=== PATIENT | female | born 1945 | race Caucasian/White ===

== ENCOUNTER 2025-01-26 06:31 | Emergency (ER) | payer MEDICARE, OTHER, SELFPAY ==
[2025-01-26] VITALS (7 sets, daily range): BP systolic 90–128; BP diastolic 57–87; BMI 34.0
--- NOTE | 2025-01-26 07:01 | ED.GENMED ---
History of Present Illness
General
Chief Complaint: Cardiac Symptoms
Source: patient and spouse
Exam Limitations: none
Time Seen by Provider: 01/26/25 06:46
Nursing documentation reviewed up to this point in time: agreed with
History of Present Illness
History of Present Illness:
80-year-old female with a past medical history of hypertension, hyperlipidemia who presents to the emergency department with her for evaluation of palpitations and dizziness. Patient reports that symptoms started around 11 PM last night
while she was getting ready for bed and continued this morning. She reports she first noticed them when she stood up to go to the bathroom and she felt mildly dizzy and she said she had 'an anxious feeling in my chest.' She says she has some
palpitations. She says this morning she felt her heart racing and had some sweatiness and nausea. She says that she was able to check her home EKG using an emma and it showed that she was in atrial fibrillation. Came to the ER for evaluation. She
is feeling generally well here in the ER. She denies any chest pain or shortness of breath. She denies any other complaints. She has no known history of A-fib but she does see a overlock elastic attacher (Dr. Disla) for blood pressure management.
She is on a beta-jimenez (carvedilol) which she took this morning. She does not take any blood thinners for any reason.
Past History
Past History
ED Past Medical History: Other (Anxiety, Arlene's thyroiditis, hypothyroidism, hypertension, hyperlipidemia, paroxysmal atrial fib)
Social History
Tobacco: Non-smoker
Alcohol: Occasional
Family History
Family History: Hypertension
Review of Systems
Review of Systems
All Other Systems: ROS reviewed and negative except as documented in HPI and ROS
Constitutional: Denies fever
Respiratory: Denies trouble breathing
Cardiac: Reports diaphoresis and palpitations; Denies chest pain
ABD/GI: Reports nausea; Denies abdominal pain
: Denies flank pain
Musculoskeletal: Denies edema, neck pain or back pain
Neurological: Reports dizzy; Denies headache
Phy Exam
Physical Exam
Physical Exam:
General: Awake, alert, oriented x3; no acute distress
Head: Normocephalic, atraumatic
Eyes: Conjunctiva normal, EOMI
Throat: Airway intact, handling secretions
Neck: Trachea midline, no JVD
Lungs: Clear to auscultation bilaterally, no wheezing, rales, rhonchi
Heart: Regular rate and irregularly irregular rhythm, no murmurs, gallops, or rubs
Abd: Soft, non distended, nontender
Neuro: No gross deficits
Extremities: No edema in extremities, equal pulses in all extremities
Scores
[id number] Score for Afib Stroke Risk
Age in Years (65=0, 65-74=1, >/=75=2): > or = 75
Sex (Female=+1): Female
Congestive Heart Failure History (Yes=+1): No
Hypertension History (Yes=+1): Yes
Stroke/TIA/Thromboembolism History (Yes=+2): No
Vascular Disease History (Yes=+1): No
Diabetes Mellitus (Yes=+1): No
Score: 4
Anticoagulation Recommendations: Recommend anticoagulation (as validated in nonvalvular fib)
Heart Failure Risk
Heart Failure Risk Score: Not Applicable
Heart Score for Chest Pain Patients
STEMI patient?: Not applicable
Withdrawal Assessment of Alcohol
Withdrawal Assessment Completed?: Not applicable
Course
Orders/Labs/Results
Orders:
Orders
01/26/25 06:37
Electrocardiogram (*1) Urgent
Reason for Study: Atrial Fibrillation
EKG- Treatment ONCE
01/26/25 07:07
Complete Blood Count/With Diff Urgent
Comprehensive Metabolic Panel Urgent
TSH Reflex To Free T4 Urgent
Troponin I Urgent
Abnormal Lab Results
01/26/25
07:07
Absolute Monos (auto) 0.7 H 10^3/uL
(0.1-0.6)
Monocytes % 10.5 H %
(1.7-9.3)
BUN 23 H mg/dl
(7-17)
Glucose 121 H mg/dl
(70-99)
01/26/25 07:07
01/26/25 07:07
Vital Signs
Initial and Last Documented VS:
Initial Vital Signs
Temp Pulse Resp BP Pulse Ox
36.2 C 70 20 128/74 96
01/26/25 06:34 01/26/25 06:34 01/26/25 06:34 01/26/25 06:34 01/26/25 06:34
Last Documented Vital Signs
Temp Pulse Resp BP Pulse Ox
36.2 C 58 15 93/58 93
01/26/25 06:34 01/26/25 09:00 01/26/25 09:00 01/26/25 09:00 01/26/25 09:00
MDM/Problems Addressed
Differential Diagnosis Includes:
A-fib
MDM/Problems Addressed:
80-year-old female presents to the ER for evaluation of palpitations and dizziness�Home EKG showed new onset A-fib. Feels well here in the ER. Vital signs normal. Physical exam as above. Her EKG here shows atrial fibrillation with ventricular
rate 61. Plan to check basic labs, thyroid studies. With very reasonable ventricular rate of 61, normal blood pressure, minimally symptomatic here no indication for emergent cardioversion at this point in time especially in light of the fact that
this is new onset with no anticoagulation on board. Patient's [id number] score is 4�will plan to start anticoagulation with Eliquis. She will need close outpatient cardiology follow-up. Will monitor on telemetry.
Labs reviewed: CBC and CMP unremarkable. Thyroid studies normal. Troponin negative. Patient remains rate controlled, normotensive well-appearing on clinical reassessment. Stable for discharge can continue carvedilol, started on Eliquis.
Follow-up with overlock elastic attacher as an outpatient. Patient comfortable with this plan. I did speak with her overlock elastic attacher to ensure good outpatient follow-up. I also spoke with case checker who came by to ensure insurance coverage for Eliquis. Spoke
about return precautions all questions answered.
*Pulse Oximetry
Patient hypoxic: no
*EKG
Interpreted by ED Provider?: Yes
Comparison EKG: changes noted (Today's in atrial fibrillation, otherwise no significant changes)
Heart Rate: 61
Rate: normal
Rhythm: a-fib
Hickman: normal axis
Interval: normal interval
QRS Pattern: left vent hypertrophy
*Critical Care Note
Total Time (30-74mins, 75-104mins- exclusive of procedures): Not Applicable
Data Reviewed
Review of Other/Old Records Reveals: Labs and Records
Source: patient and records
Patient Management
Discussion with other providers: Tack Welder (Discussed with her outpatient cardiology office) and Other (Discussed with case management)
ED Attending Note
-
Portions of this chart may have been created with voice recognition software.� Occasional wrong word or��sound alike� substitutions may have occurred due to the inherent limitations of voice recognition software.
Discharge Plan
Departure
Patient Disposition: Home (Routine Discharge)
Date of Disposition: 01/26/25
Time of Disposition: 08:53
Patient with high blood pressure during this ER visit?: No
Discharge Problem:
Atrial fibrillation
Instructions: Atrial fibrillation - Discharge instructions
Prescriptions:
New
Eliquis 5 mg tablet
5 mg PO BID Qty: 60 0RF
No Action
multivitamin [Qlx-Hkyihq-Bedwa] 1 EACH tablet
1 ea PO HS
atenolol-chlorthalidone [Tenoretic 50] 1 EACH tablet
1 ea PO HS
aspirin [Ciara Low Dose Aspirin] 81 MG tablet,delayed release (DR/EC)
81 mg PO HS
levothyroxine 100 MCG tablet
100 mcg PO DAILY
alprazolam 0.25 MG tablet
0.25 mg PO DAILYPRN PRN (Reason: anxiety)
calcium carbonate [calcium] 500 MG tablet
500 mg PO BID
ascorbic acid (vitamin C) 250 MG tablet
250 mg PO HS
simvastatin 5 MG tablet
5 mg PO HS
lisinopril 10 MG tablet
10 mg PO BID
vitamin B complex 1 TAB tablet
1 tab PO DAILY
Lactobacillus acidophilus [Acidophilus] 1 CAP capsule
1 cap PO DAILY
loratadine 10 MG tablet
10 mg PO HS
cholecalciferol (vitamin D3) [Vitamin D3] 1,000 UNIT capsule
1,000 unit PO DAILY
sulfacetamide sodium 355 ML cleanser
1 dose topical QPM
glucosamine addison 2KCl-chondroit [Glucosamine Sulf-Chondroitin] 1 EACH capsule
1 cap PO HS
omega 8-znj-kgm-fish oil 1 EACH capsule
1 ea PO BID
azelaic acid [Finacea] 50 GM foam
50 gm topical BID
Sodium Fluoride
1 dose PO BID
Referrals:
Shannon Disla MD [Active] - Call in 1-3 days for appt
Activity Restrictions/Additional Instructions:
Thank you for visiting the Emergency Department at [facility].
1. Please schedule a follow up appointment as directed. Call first thing tomorrow morning to make an appointment.
2. If indicated, please take your medications as instructed and indicated on discharge paperwork.
3. If any of your symptoms do not improve, or persist, or become more severe within 6-12 hours, please return to the emergency department for further care.
4. Please return to the emergency department if you develop a headache, neck pain/stiffness, fever greater than 100.4F, chest pain, shortness of breath, persistent nausea, vomiting, slurred speech, difficulty walking, numbness/tingling, weakness,
signs of infection or any other symptoms that are worrisome to you.
Please call [phone] if you have any questions.
Interventions
Interventions:
*Risk Screen - Suicide Last Done: 01/26/25 06:34
*General Assessment Last Done: 01/26/25 07:11
*Neglect/Abuse Screening Last Done: 01/26/25 06:34
*ED- Fall Risk Assessment Last Done: 01/26/25 07:11
*ED COVID-19 Vaccine History Last Done: 01/26/25 07:11
ED- Pulmonary Assessment Last Done: 01/26/25 07:11
ED- Cardiac Assessment Last Done: 01/26/25 07:11
Discharge Date and Time
Print Language: BURMESE
[2025-01-26 07:17] LABS: % Basophils 0.9 % (0-2); % Eosinophils 5.2 % (0-6); % Immature Granulocytes 0.3 % (0-0.5); % Lymphocytes 33.7 % (20.5-51.1); % Monocytes 10.5 % (1.7-9.3); % Neutrophils 49.4 % (42.2-75.2); Absolute Basophils 0.1 10^3/uL (0-0.2); Absolute Eosinophils 0.3 10^3/uL (0-0.7); Absolute Lymphocytes 2.2 10^3/uL (1.2-3.4); Absolute Monocytes 0.7 10^3/uL (0.1-0.6); Absolute Neutrophils 3.2 10^3/uL (1.4-6.5); Hematocrit 41.7 % (37.0-47.0); Hemoglobin 14.5 g/dL (12.0-16.0); Mean Corp Hgb Conc. 34.8 g/dL (33.0-37.0); Mean Corpuscular Hgb 30.9 pg (27.0-31.0); Mean Corpuscular Volume 88.9 fL (81.0-99.0); Mean Platelet Volume 9.3 fL (7.4-10.4); Nucleated Red Blood Cells % 0 %; Platelet Count 180 10^3/uL (130-400); Red Blood Cell Count 4.69 10^6/uL (4.20-5.40); Red Cell Dist. Width 12.9 % (11.5-14.5); White Blood Cell Count 6.4 10^3/uL (4.8-10.8)
[2025-01-26 07:34] LABS: ALT (SGPT) 24 U/L (0-35); AST (SGOT) 25 U/L (14-36); Albumin 4.3 g/dl (3.5-5.0); Alkaline Phosphatase 75 U/L (38-126); Blood Urea Nitrogen 23 mg/dl (7-17); Carbon Dioxide 27 mmol/L (22-30); Chloride 103 mmol/L (98-107); Estimated Creatinine Clearance 54 ml/min; Glucose 121 mg/dl (70-99); Potassium 4.8 mmol/L (3.5-5.1); Sodium 136 mmol/L (135-145); Total Bilirubin 0.5 mg/dl (0.2-1.3); Total Protein 6.9 g/dl (6.3-8.2); eGFR > 60.00
[2025-01-26 07:45] LABS: Troponin I 0.013 ng/ml
[2025-01-26 08:05] LABS: TSH Reflex To Free T4 3.11 uIU/ml (0.47-4.68)
--- NOTE | 2025-01-26 09:06 | CM ---
ED CM consult for Eliquis
Call with [facility] [phone]
Eliquis 5 mg BID
30 day retail- $117.12
90 day mail order- $326.31
Deductible- $93.94
Out of pocket max- $1132.93/$2000
Bedside update to pt
Able to take on costs
30 day card provided
Update Dr Christie
--- NOTE | 2025-01-26 09:39 | EDRN ---
Reviewed discharge instructions with patient. Verbalized understanding.
== END 2025-01-26 09:41 | disposition home or self-care (01) ==
LOC: EMR 06:31
PROVIDERS: EMERGENCY PHYSICIAN Emergency Medicine; FAMILY PHYSICIAN Family Medicine
DX: I48.91 Unspecified atrial fibrillation (principal); I10 Essential (primary) hypertension; E78.00 Pure hypercholesterolemia, unspecified; E06.3 Autoimmune thyroiditis; F41.9 Anxiety disorder, unspecified; Z82.49 Family history of ischemic heart disease and other diseases of the circulatory system
CPT/HCPCS: 99283; 80053; 84443; 84484; 85025; 93005